=== PATIENT | female | born 1990 | race Caucasian/White ===

== ENCOUNTER 2022-10-16 18:14 | Observation (INO) ==
[2022-10-16] MEDS ORDERED: PIPERACILLIN SODIUM/TAZOBACTAM 3.375 GM in DEXTROSE 5% IN WATER 50 ML IV ONE (18:27)
[2022-10-16] MEDS ORDERED: ONDANSETRON 4 MG/2 ML VIAL IV PRN ×2 (18:28→18:56)
[2022-10-16] MEDS ORDERED: 0.9 % SODIUM CHLORIDE 1,000 ML IV ONE (18:28)
[2022-10-16] MEDS ORDERED: PROMETHAZINE 25 MG/ML VIAL IV PRN (18:56)
[2022-10-16] MEDS ORDERED: LORazepam 0.5 MG TABLET PO PRN (19:01)
[2022-10-16] MEDS: morphine 4 MG/ML VIAL IV PRN (19:26)
[2022-10-16 20:02] LABS: Appearance,Urine HAZY (Clear); Bilirubin,Urine Negative (Negative); Color,Urine STRAW; Culture Indicated,Urine No; Glucose,Urine (UA) Negative (Negative); Ketones,Urine Negative (Negative); Leukocyte Esterase,Urine 25 /uL (Negative); Mucus,Urine FEW /hpf; Nitrate,Urine Negative (Negative); Protein,Urine Negative (Negative); Specific Gravity,Urine > 1.060 (1.000-1.035); Urine RBC 5 /hpf (0-3); Urine Squamous Epithelial Cell 17 /hpf (0-4); Urine WBC 2 /hpf (0-4); Urobilinogen,Urine Negative
[2022-10-16 20:11] LABS: INR 0.9 (0.9-1.1)
[2022-10-16] MEDS: PIPERACILLIN SODIUM/TAZOBACTAM 3.375 GM in DEXTROSE 5% IN WATER 50 ML IV SCH (21:05)
[2022-10-16] MEDS: HYDROmorphone 1 MG/ML SYRINGE IV PRN (21:18)
[2022-10-16] MEDS: 0.9 % SODIUM CHLORIDE 1,000 ML IV SCH (21:18)
[2022-10-16] MEDS ORDERED: ACETAMINOPHEN 1,000 MG/100 ML BAG IV PRN (21:43)
[2022-10-16] MEDS: KETOROLAC 30 MG/ML VIAL IV PRN (22:25)
[2022-10-16] MEDS: 0.9 % SODIUM CHLORIDE 10 ML SYRINGE IV SCH (22:26)
[2022-10-17] MEDS ORDERED: ACETAMINOPHEN IV ONE (00:22)
[2022-10-17] MEDS: ACETAMINOPHEN 1,000 MG/100 ML BAG IV SCH ×5 (00:32→23:16)
[2022-10-17] MEDS: PIPERACILLIN SODIUM/TAZOBACTAM 3.375 GM in DEXTROSE 5% IN WATER 50 ML IV SCH ×5 (01:02→23:45)
[2022-10-17] MEDS: 0.9 % SODIUM CHLORIDE 1,000 ML IV SCH ×3 (06:24→14:37)
[2022-10-17] MEDS: 0.9 % SODIUM CHLORIDE 10 ML SYRINGE IV SCH ×3 (06:24→22:19)
[2022-10-17 06:46] LABS: Basophils # (Auto) 0.09 K/mcL (0.00-0.30); Basophils % (Auto) 1.1 % (0.0-2.0); Eosinophils # (Auto) 0.25 K/mcL (0.00-0.70); Eosinophils % (Auto) 3.1 % (0.0-7.0); Hematocrit 36.6 % (34.1-44.9); Hemoglobin 11.8 g/dL (11.2-15.7); Lymphocytes # (Auto) 2.86 K/mcL (1.50-4.80); Lymphocytes % (Auto) 34.9 % (15.5-49.0); Mean Cell Volume 86.5 fL (80.0-100.0); Mean Corpuscular HGB Conc 32.2 g/dL (31.0-36.0); Mean Platelet Volume 10.7 fL (8.8-12.5); Monocytes # (Auto) 0.38 K/mcL (0.10-0.90); Monocytes % (Auto) 4.6 % (1.0-12.0); Neutrophils % (Auto) 55.9 % (38.0-78.0); Platelet Count 265 K/mcL (140-440); RBC 4.23 M/mcL (3.59-5.38); Red Cell Distribution Width 13.6 % (11.5-14.5); WBC 8.2 K/mcL (4.5-11.0)
[2022-10-17 07:05] LABS: ALT/SGPT 6 U/L (<40); AST/SGOT 10 U/L (<32); Albumin 3.4 gm/dL (3.2-5.2); Albumin/Globulin Ratio 1.2 (1.0-2.3); Alkaline Phosphatase 97 U/L (39-117); Bilirubin,Direct < 0.2 mg/dL (0-0.3); Bilirubin,Total 0.3 mg/dL (0.1-1.0); Blood Urea Nitrogen 6 mg/dL (6-20); Calcium 8.5 mg/dL (8.6-10.4); Carbon Dioxide 26 mmol/L (22-30); Chloride 104 mmol/L (96-108); Globulin 2.8 gm/dL (2.2-3.7); Glomerular Filtration Rate 120; Glucose 86 mg/dL (70-105); Lactate Dehydrogenase 101 U/L (135-225); Triglycerides 85 mg/dL (<150); Uric Acid 3.6 mg/dL (2.5-8.0)
[2022-10-17] MEDS ORDERED: SCOPOLAMINE 1 PATCH PATCH TOPICAL PRN (09:00)
[2022-10-17] MEDS ORDERED: IPRATROPIUM/ALBUTEROL 3 ML AMPUL.NEB NEB PRN ×2 (09:00→11:58)
[2022-10-17] MEDS ORDERED: SUGAMMADEX SODIUM 200 MG/2 ML VIAL IV ONE (11:36)
[2022-10-17] MEDS ORDERED: MAGNESIUM SULFATE 2 GM/50 ML BAG IV ONE (11:36)
[2022-10-17] MEDS ORDERED: KETOROLAC 30 MG/ML VIAL ONE (11:36)
[2022-10-17] MEDS ORDERED: LIDOCAINE HCL/PF 100 MG/5 ML SYRINGE IV ONE (11:36)
[2022-10-17] MEDS ORDERED: fentaNYL 100 MCG/2 ML VIAL IV ONE (11:36)
[2022-10-17] MEDS ORDERED: ROCURONIUM 10 MG/ML ML IV ONE (11:36)
[2022-10-17] MEDS ORDERED: METOCLOPRAMIDE 10 MG/2 ML VIAL ONE (11:36)
[2022-10-17] MEDS ORDERED: PROPOFOL 200 MG/20 ML VIAL IV ONE (11:36)
[2022-10-17] MEDS ORDERED: DEXAMETHASONE 10 MG/ML VIAL ONE (11:36)
[2022-10-17] MEDS ORDERED: ONDANSETRON 4 MG/2 ML VIAL ONE (11:36)
[2022-10-17] MEDS ORDERED: ACETAMINOPHEN 1,000 MG/100 ML BAG IV ONE (11:58)
[2022-10-17] MEDS ORDERED: diphenhydrAMINE 50 MG/ML VIAL IV PRN (11:58)
[2022-10-17] MEDS ORDERED: LACTATED RINGERS 250 ML IV PRN (11:58)
[2022-10-17] MEDS ORDERED: MEPERIDINE 50 MG/ML VIAL IM PRN (11:58)
[2022-10-17] MEDS ORDERED: METHOCARBAMOL 1,000 MG/10 ML VIAL IV PRN (11:58)
[2022-10-17] MEDS ORDERED: fentaNYL 100 MCG/2 ML VIAL IV PRN (11:58)
[2022-10-17] MEDS: morphine 4 MG/ML VIAL IV PRN (13:45)
[2022-10-17 15:03] LABS: Basophils # (Auto) 0.04 K/mcL (0.00-0.30); Basophils % (Auto) 0.3 % (0.0-2.0); Eosinophils # (Auto) 0.13 K/mcL (0.00-0.70); Eosinophils % (Auto) 1.1 % (0.0-7.0); Hematocrit 43.4 % (34.1-44.9); Hemoglobin 13.7 g/dL (11.2-15.7); Lymphocytes # (Auto) 1.04 K/mcL (1.50-4.80); Lymphocytes % (Auto) 8.5 % (15.5-49.0); Mean Cell Volume 87.9 fL (80.0-100.0); Mean Corpuscular HGB Conc 31.6 g/dL (31.0-36.0); Mean Platelet Volume 10.7 fL (8.8-12.5); Monocytes # (Auto) 0.12 K/mcL (0.10-0.90); Neutrophils % (Auto) 88.7 % (38.0-78.0); Platelet Count 286 K/mcL (140-440); RBC 4.94 M/mcL (3.59-5.38); Red Cell Distribution Width 13.7 % (11.5-14.5); WBC 12.2 K/mcL (4.5-11.0)
[2022-10-17] MEDS: KETOROLAC 30 MG/ML VIAL IV PRN (15:05)
[2022-10-17] MEDS: HYDROmorphone 1 MG/ML SYRINGE IV PRN (15:05)
[2022-10-17] MEDS: oxyCODONE IR 5 MG TABLET PO PRN (20:26)
[2022-10-18] MEDS: ACETAMINOPHEN 1,000 MG/100 ML BAG IV SCH ×2 (04:58→12:33)
[2022-10-18] MEDS: 0.9 % SODIUM CHLORIDE 10 ML SYRINGE IV SCH (04:59)
[2022-10-18] MEDS: PIPERACILLIN SODIUM/TAZOBACTAM 3.375 GM in DEXTROSE 5% IN WATER 50 ML IV SCH ×2 (05:39→12:33)
[2022-10-18] MEDS: oxyCODONE IR 5 MG TABLET PO PRN (13:05)
== END 2022-10-18 13:15 | disposition home or self-care (01) ==
LOC: MEDSUR 18:14 → ED 18:14 → MEDSUR 20:42
PROVIDERS: ADMIT Family Medicine Adult Medicine; ATTEND Family Medicine Adult Medicine